=== PATIENT | female | born 1985 | race Caucasian/White ===

== ENCOUNTER 2016-07-04 15:02 | Emergency (ER) | payer MEDICARE, MEDICAID ==
[~2016-07-04] VITALS: Ht 162.6 cm; Wt 70.2 kg
[~2016-07-04 15:02] MED LIST: ALBU0.63 NEB; ALBU8.5H5 INH; ALPR-475 PO; ARIP5TAB6 PO; ASPI-770 PO; CYCL-259 PO; DILT120C64 PO; HYDR-3138 PO; HYDR-3307 PO; ISOS20TA58 PO; MONT4GRA PO; NICO1PAT5 TD; NITR0.4T SL; OMEP-110 PO; ONDA-39 PO; POLY17PO5 PO; PREG25CA PO; TIZA2CAP PO
[2016-07-04] MEDS ORDERED: ONDANSETRON 2MG/ML, 2ML ONE ×2 (15:25→18:53)
[2016-07-04] MEDS ORDERED: MORPHINE SULFATE 4 MG/ML, 1ML ONE ×3 (15:25→18:53)
[2016-07-04] MEDS ORDERED: SODIUM CHLORIDE 0.9% 1,000ML IV ONE (15:30)
[2016-07-04] MEDS ORDERED: ONDANSETRON 2MG/ML, 2ML IVPush ONE ×2 (15:30→19:00)
[2016-07-04] MEDS ORDERED: SODIUM CHLORIDE FLUSH 10ML SYR IVF ONE (15:30)
[2016-07-04] MEDS: MORPHINE SULFATE 4 MG/ML, 1ML IVPush PRN ×2 (16:06→17:03)
[2016-07-04 16:48] LABS: HEMOGLOBIN 15.2 g/dL (11.7-16.4)
[2016-07-04 17:00] LABS: BLOOD UREA NITROGEN 12 mg/dL (7-18)
[2016-07-04 18:07] VITALS: BP 137/86
[2016-07-04] MEDS ORDERED: MORPHINE SULFATE 4 MG/ML, 1ML IVPush ONE (19:00)
== END 2016-07-04 19:24 | disposition home or self-care (01) ==
LOC: ED 19:12
DX: R10.9 Unspecified abdominal pain (principal); R11.0 Nausea; R68.83 Chills (without fever); F17.200 Nicotine dependence, unspecified, uncomplicated; M32.9 Systemic lupus erythematosus, unspecified; I25.10 Atherosclerotic heart disease of native coronary artery without angina pectoris; J45.909 Unspecified asthma, uncomplicated; I25.2 Old myocardial infarction; Z90.5 Acquired absence of kidney; Z90.49 Acquired absence of other specified parts of digestive tract; Z88.6 Allergy status to analgesic agent; Z88.2 Allergy status to sulfonamides
CPT/HCPCS: 36415; 74176; 76770; 80048; 81003; 82040; 84703; 85025; 96361; 96374; 96375; 96376; 99285; J2405; J7030

== ENCOUNTER 2016-08-08 12:14 | Emergency (ER) | payer MEDICAID, MEDICARE ==
[~2016-08-08] VITALS: Ht 162.6 cm; Wt 69.9 kg
[2016-08-08 12:22] VITALS: BP 150/98
[2016-08-08] MEDS ORDERED: SODIUM CHLORIDE FLUSH 10ML SYR IVF ONE (13:30)
[2016-08-08 14:06] LABS: ASPARTATE AMINO TRANSFERASE 19 U/L (15-37); BLOOD UREA NITROGEN 16 mg/dL (7-18)
[2016-08-08 14:13] LABS: IS PT STATUS REG ER OR PRE ER? YES
[2016-08-08] MEDS ORDERED: PREG50CA PO (14:22)
[2016-08-08] MEDS ORDERED: MORPHINE SULFATE 4 MG/ML, 1ML IVPush PRN (15:00)
[2016-08-08] MEDS ORDERED: ONDANSETRON 2MG/ML, 2ML IVPush ONE (15:00)
[2016-08-08] MEDS ORDERED: MORPHINE SULFATE 4 MG/ML, 1ML ONE (15:40)
[2016-08-08] MEDS ORDERED: ONDANSETRON 2MG/ML, 2ML ONE (15:41)
== END 2016-08-08 16:28 | disposition home or self-care (01) ==
LOC: ED 16:10
DX: R52 Pain, unspecified (principal); R42 Dizziness and giddiness
CPT/HCPCS: 36415; 71010; 80053; 81003; 84484; 84703; 85025; 85610; 85651; 85730; 93005; 96374; 96375; 99285; J2405

== ENCOUNTER 2017-12-05 17:17 | Emergency (ER) | payer OTHER ==
[~2017-12-05] VITALS: Ht 162.6 cm; Wt 71.2 kg
[~2017-12-05 17:17] MED LIST changes: +ARIP5TAB13 PO; -ARIP5TAB6 PO; -ASPI-770 PO; +ASPI81TA59 PO; -HYDR-3138 PO; +HYDR-3237 PO; +NICO-487 TD; -NICO1PAT5 TD; -ONDA-39 PO; +ONDA4TAB12 PO; +PREG50CA PO
[2017-12-05 17:56] LABS: MEAN CORPUSCULAR HEMOGLOBIN 31.4 pg (27.0-34.8); MEAN CORPUSCULAR HGB CONC 34.1 g/dL (32.4-35.8); MEAN CORPUSCULAR VOLUME 92.1 fL (80-100); PLATELET COUNT 389 x10^3/uL (130-400); RED BLOOD COUNT 4.76 x10^6/uL (3.82-5.3); RED CELL DISTRIBUTION WIDTH 13.8 % (9.6-15.2)
[2017-12-05 18:05] LABS: ALANINE AMINOTRANSFERASE 104 U/L (12-78); ALBUMIN 3.9 g/dL (3.4-5.0); ANION GAP 8 mmol/L (5-15); CALCIUM 8.7 mg/dL (8.5-10.1); CHLORIDE 106 mmol/L (98-107); CREATININE 0.88 mg/dL (0.55-1.02)
[2017-12-05 18:10] LABS: BILIRUBIN,TOTAL 0.1 mg/dL (0.2-1.0); TOTAL PROTEIN 7.4 g/dL (6.4-8.2)
[2017-12-05 18:13] LABS: ALKALINE PHOSPHATASE 78 U/L (45-117)
[2017-12-05 18:18] LABS: MICROSCOPIC INDICATED
[2017-12-05 18:22] LABS: BASOPHILS # (AUTO) 0.09 x10^3/uL (0-0.1); BASOPHILS % (AUTO) 1 % (0-1); EOSINOPHILS # (AUTO) 0.19 x10^3/uL (0-0.4); EOSINOPHILS % (AUTO) 1 % (1-7); LYMPHOCYTES # (AUTO) 5.08 x10^3/uL (1-3.4); LYMPHOCYTES % (AUTO) 37 % (22-44); MD SCAN; MONOCYTES # (AUTO) 1.01 x10^3/uL (0.2-0.8); MONOCYTES % (AUTO) 7 % (2-9); NEUTROPHILS % (AUTO) 54 % (42-75)
[2017-12-05 18:30] LABS: CULTURE INDICATED? NO
[2017-12-05] MEDS ORDERED: SODIUM CHLORIDE FLUSH 10ML SYR IVF ONE (18:30)
[2017-12-05 19:52] VITALS: BP 148/94
== END 2017-12-05 19:54 | disposition home or self-care (01) ==
LOC: ED 19:15
DX: M54.5 Low back pain (principal); F17.200 Nicotine dependence, unspecified, uncomplicated; M32.9 Systemic lupus erythematosus, unspecified; R50.9 Fever, unspecified; R11.0 Nausea; I25.10 Atherosclerotic heart disease of native coronary artery without angina pectoris; I25.2 Old myocardial infarction; J45.909 Unspecified asthma, uncomplicated; Z90.49 Acquired absence of other specified parts of digestive tract; Z88.2 Allergy status to sulfonamides; Z88.8 Allergy status to other drugs, medicaments and biological substances; Z90.5 Acquired absence of kidney
CPT/HCPCS: 36415; 74018; 76770; 80053; 81001; 84703; 85025; 99285

== ENCOUNTER 2018-01-22 09:15 | Emergency (ER) | payer OTHER ==
[~2018-01-22] VITALS: Ht 162.6 cm; Wt 67.7 kg
[2018-01-22 10:23] LABS: BASOPHILS # (AUTO) 0.08 x10^3/uL (0-0.1); BASOPHILS % (AUTO) 1 % (0-1); EOSINOPHILS # (AUTO) 0.22 x10^3/uL (0-0.4); EOSINOPHILS % (AUTO) 2 % (1-7); LYMPHOCYTES # (AUTO) 3.49 x10^3/uL (1-3.4); LYMPHOCYTES % (AUTO) 25 % (22-44); MD NO; MEAN CORPUSCULAR HEMOGLOBIN 31.3 pg (27.0-34.8); MEAN CORPUSCULAR HGB CONC 34.1 g/dL (32.4-35.8); MEAN CORPUSCULAR VOLUME 91.7 fL (80-100); MONOCYTES # (AUTO) 0.84 x10^3/uL (0.2-0.8); MONOCYTES % (AUTO) 6 % (2-9); NEUTROPHILS # (AUTO) 9.43 x10^3/uL (1.8-6.8); NEUTROPHILS % (AUTO) 67 % (42-75); PLATELET COUNT 320 x10^3/uL (130-400); RED BLOOD COUNT 4.82 x10^6/uL (3.82-5.3); RED CELL DISTRIBUTION WIDTH 14.1 % (9.6-15.2)
[2018-01-22] MEDS ORDERED: AMIT10TA PO (10:23)
[2018-01-22] MEDS ORDERED: DICL25TA PO (10:23)
[2018-01-22] MEDS ORDERED: GABA-827 PO (10:24)
[2018-01-22] MEDS ORDERED: OXYC-302 PO (10:24)
[2018-01-22] MEDS ORDERED: ISOS5TAB2 PO (10:24)
[2018-01-22] MEDS ORDERED: ARIP2TAB2 PO (10:24)
[2018-01-22] MEDS ORDERED: NITR0.3T SL (10:25)
[2018-01-22] MEDS ORDERED: HYDR10TA4 PO (10:25)
[2018-01-22] MEDS ORDERED: ASPI-650 PO (10:25)
[2018-01-22] MEDS ORDERED: ALBU0.63 NEB (10:25)
[2018-01-22] MEDS ORDERED: TIZA2CAP PO (10:26)
[2018-01-22] MEDS ORDERED: PROMETHAZINE 25 MG/ML, 1ML IM ONE (10:30)
[2018-01-22] MEDS ORDERED: ONDANSETRON 2MG/ML, 2ML IVPush ONE (10:30)
[2018-01-22 10:33] LABS: ALANINE AMINOTRANSFERASE 62 U/L (12-78); ANION GAP 5 mmol/L (5-15); CHLORIDE 106 mmol/L (98-107); CREATININE 0.78 mg/dL (0.55-1.02)
[2018-01-22 10:35] LABS: ALKALINE PHOSPHATASE 85 U/L (45-117); BILIRUBIN,TOTAL 0.3 mg/dL (0.2-1.0); TOTAL PROTEIN 7.8 g/dL (6.4-8.2)
[2018-01-22 10:47] LABS: HCG UR SG 1.008 (1.003-1.030); MICROSCOPIC NOT IND
[2018-01-22 10:54] LABS: CULTURE INDICATED? NO
[2018-01-22] MEDS ORDERED: PROMETHAZINE 25 MG/ML, 1ML ONE (10:55)
[2018-01-22 13:00] VITALS: BP 137/95
== END 2018-01-22 13:02 | disposition home or self-care (01) ==
LOC: ED 11:07
DX: T63.391A Toxic effect of venom of other spider, accidental (unintentional), initial encounter (principal); R11.2 Nausea with vomiting, unspecified; R19.7 Diarrhea, unspecified; I25.10 Atherosclerotic heart disease of native coronary artery without angina pectoris; I25.2 Old myocardial infarction; F17.200 Nicotine dependence, unspecified, uncomplicated; Z88.1 Allergy status to other antibiotic agents; Y92.9 Unspecified place or not applicable
CPT/HCPCS: 36415; 80053; 81003; 81025; 83690; 85025; 96372; 99284; J2550

== ENCOUNTER 2018-09-20 11:01 | Emergency (ER) | payer OTHER ==
[~2018-09-20] VITALS: Ht 162.6 cm; Wt 66.2 kg
[~2018-09-20 11:01] MED LIST changes: +AMIT10TA PO; +ARIP2TAB2 PO; +ASPI-650 PO; +DICL25TA PO; +GABA-827 PO; +HYDR10TA4 PO; +ISOS5TAB2 PO; +NITR0.3T SL; -NITR0.4T SL; +NITR0.4T41 SL; +OXYC-302 PO
--- NOTE | 2018-09-20 11:27 | NUR ---
pt to ed with cp since 6pm last night, dull, achy, having palpitations, worse when lying down. hx lupus. took nitro with no relief. pt placed on monitor, dr. osorio at bedside. at bedside, call light within reach
[2018-09-20] MEDS ORDERED: ONDANSETRON 2MG/ML, 2ML ONE (11:47)
[2018-09-20] MEDS ORDERED: MORPHINE SULFATE 4 MG/ML, 1ML ONE (11:47)
[2018-09-20] MEDS ORDERED: ONDANSETRON 2MG/ML, 2ML IVPush ONE (12:00)
[2018-09-20] MEDS ORDERED: MORPHINE SULFATE 4 MG/ML, 1ML IVPush PRN (12:00)
--- NOTE | 2018-09-20 12:16 | NUR ---
iv established and pt medicated per jun. pt states she is feeling sob. ok per md for pt to have her own inhaler. awaiting labs and rad results. pt on monitor, call light within reach, at bedside.
[2018-09-20 12:22] LABS: BASOPHILS # (AUTO) 0.05 x10^3/uL (0-0.1); BASOPHILS % (AUTO) 0 % (0-1); EOSINOPHILS % (AUTO) 1 % (1-7); LYMPHOCYTES # (AUTO) 3.37 x10^3/uL (1-3.4); LYMPHOCYTES % (AUTO) 24 % (22-44); MD NO; MEAN CORPUSCULAR HEMOGLOBIN 31.1 pg (27.0-34.8); MEAN CORPUSCULAR HGB CONC 33.2 g/dL (32.4-35.8); MEAN CORPUSCULAR VOLUME 93.9 fL (80-100); MEAN PLATELET VOLUME 8.2 fL (7.4-10.4); MONOCYTES # (AUTO) 0.63 x10^3/uL (0.2-0.8); MONOCYTES % (AUTO) 5 % (2-9); NEUTROPHILS # (AUTO) 9.84 x10^3/uL (1.8-6.8); NEUTROPHILS % (AUTO) 70 % (42-75); PLATELET COUNT 347 x10^3/uL (130-400); RED BLOOD COUNT 4.55 x10^6/uL (3.82-5.3); RED CELL DISTRIBUTION WIDTH 13.8 % (9.6-15.2)
[2018-09-20 12:32] LABS: ALANINE AMINOTRANSFERASE 36 U/L (12-78); ANION GAP 8 mmol/L (5-15); CALCIUM 9.2 mg/dL (8.5-10.1); CHLORIDE 110 mmol/L (98-107); CREATININE 0.79 mg/dL (0.55-1.02)
[2018-09-20 12:37] LABS: ALKALINE PHOSPHATASE 78 U/L (45-117); BILIRUBIN,TOTAL 0.4 mg/dL (0.2-1.0); TOTAL PROTEIN 7.4 g/dL (6.4-8.2); TROPONIN I < 0.015 ng/mL (0.000-0.045)
[2018-09-20 12:58] VITALS: BP 131/95
--- NOTE | 2018-09-20 12:59 | NUR ---
pt resting in rphyllis with at bedside, awaiting [facility] records. call light within reach
== END 2018-09-20 13:38 | disposition home or self-care (01) ==
LOC: ED 13:33
DX: R07.89 Other chest pain (principal); M79.18 Myalgia, other site; R00.2 Palpitations; I25.2 Old myocardial infarction; I09.9 Rheumatic heart disease, unspecified; J45.909 Unspecified asthma, uncomplicated; I25.10 Atherosclerotic heart disease of native coronary artery without angina pectoris; Z87.39 Personal history of other diseases of the musculoskeletal system and connective tissue; Z90.5 Acquired absence of kidney; Z90.49 Acquired absence of other specified parts of digestive tract; Z72.89 Other problems related to lifestyle
CPT/HCPCS: 36415; 71045; 80053; 84484; 84703; 85025; 85379; 93005; 96374; 96375; 99284; J2270; J2405

== ENCOUNTER 2019-03-27 18:09 | Emergency (ER) | payer OTHER ==
[~2019-03-27] VITALS: Ht 162.6 cm; Wt 64.5 kg
[~2019-03-27 18:09] MED LIST changes: -ALPR-475 PO; +ALPR0.5T7 PO; -HYDR-3307 PO; +HYDR-36 PO
--- NOTE | 2019-03-27 18:41 | NUR ---
BIB EMS FROM HOME, RLQ ABD PAIBN X 1 DAY WORSE THIS AFTERNOON AND DEVELOPED SUBSTERNAL NON-RADIATING CP TOOK OWN NTG WITH RELIEF OF PAIN. REC'D 50MCG FENT AND 4MG ZOFRAN FROM EMS WITH IMPROVEMENT IN ABD PAIN. PT PRESENTS WITH NO CP AT THIS TIME. 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
--- NOTE | 2019-03-27 18:48 | NUR ---
DR SCANLON AT BEDSIDE. PT ASSESSMENT REVIEWED, ORDERS REC'D.
[2019-03-27] MEDS ORDERED: DULO30CA2 PO (18:56)
[2019-03-27] MEDS ORDERED: GABA300C10 PO (18:56)
[2019-03-27] MEDS ORDERED: HYDR-826 PO (18:56)
[2019-03-27] MEDS ORDERED: METO25TA35 PO (18:56)
[2019-03-27] MEDS ORDERED: ONDANSETRON 2MG/ML, 2ML IVPush ONE (19:00)
[2019-03-27] MEDS ORDERED: MORPHINE SULFATE 4 MG/ML, 1ML IVPush PRN (19:00)
--- NOTE | 2019-03-27 19:10 | NUR ---
SBAR RPT TO [facility]OS.
--- NOTE | 2019-03-27 19:13 | NUR ---
REPORT FROM KIRSTIN STORY WITH ASSESSMENT PATIENT REPORTS RLQ ABD PAIN AT 8/10 (REFRACTORY TO FENT GIVEN BY EMS) HAS APPENDIX, LBM 03/26/19 HX OF RIGHT NEPHRECTOMY.CHOLECYSTECTOMY VSS ON CADIAC MONITOR UA SENT LAB AT BEDSIDE-LABS OBTAINED
[2019-03-27 19:24] LABS: MICROSCOPIC AUTO
[2019-03-27 19:26] LABS: BASOPHILS # (AUTO) 0.05 x10^3/uL (0-0.1); BASOPHILS % (AUTO) 0 % (0-1); EOSINOPHILS # (AUTO) 0.29 x10^3/uL (0-0.4); EOSINOPHILS % (AUTO) 2 % (1-7); LYMPHOCYTES # (AUTO) 4.25 x10^3/uL (1-3.4); LYMPHOCYTES % (AUTO) 34 % (22-44); MD NO; MEAN CORPUSCULAR HEMOGLOBIN 31.5 pg (27.0-34.8); MEAN CORPUSCULAR VOLUME 95.4 fL (80-100); MONOCYTES % (AUTO) 6 % (2-9); NEUTROPHILS % (AUTO) 57 % (42-75); PLATELET COUNT 366 x10^3/uL (130-400); RED BLOOD COUNT 4.65 x10^6/uL (3.82-5.3); RED CELL DISTRIBUTION WIDTH 13.8 % (9.6-15.2)
[2019-03-27 19:29] LABS: ALANINE AMINOTRANSFERASE 42 U/L (12-78); ALBUMIN 3.6 g/dL (3.4-5.0); ANION GAP 6 mmol/L (5-15); CALCIUM 9.2 mg/dL (8.5-10.1); CHLORIDE 104 mmol/L (98-107); CULTURE INDICATED? NO
[2019-03-27 19:35] LABS: ALKALINE PHOSPHATASE 90 U/L (45-117); BILIRUBIN,TOTAL 0.2 mg/dL (0.2-1.0); TOTAL PROTEIN 7.4 g/dL (6.4-8.2); TROPONIN I < 0.015 ng/mL (0.000-0.045)
[2019-03-27] MEDS ORDERED: ONDANSETRON 2MG/ML, 2ML ONE (19:51)
[2019-03-27] MEDS ORDERED: MORPHINE SULFATE 4 MG/ML, 1ML ONE (19:51)
--- NOTE | 2019-03-27 19:58 | NUR ---
MEDICATED PER EMAR FO PAIN RATED AT 8/10 TO RLQ
--- NOTE | 2019-03-27 20:31 | NUR ---
CALLED CT TO EXPEDITE EXAM
[2019-03-27] MEDS ORDERED: OMNIPAQUE 350 MG/ML, 100ML BOTTLE ONE (20:46)
--- NOTE | 2019-03-27 20:50 | NUR ---
TO CT SCAN WITH REASSESSMENT PAIN IMPROVED TO 4/10 VSS ON COLLAR PACKER
[2019-03-27 21:05] VITALS: BP 132/78
== END 2019-03-27 21:57 | disposition home or self-care (01) ==
LOC: ED 21:18
DX: R10.31 Right lower quadrant pain (principal); R11.2 Nausea with vomiting, unspecified; I25.10 Atherosclerotic heart disease of native coronary artery without angina pectoris; F17.200 Nicotine dependence, unspecified, uncomplicated; Z90.49 Acquired absence of other specified parts of digestive tract; I25.2 Old myocardial infarction
CPT/HCPCS: 36415; 74177; 80053; 81001; 83690; 84484; 84703; 85025; 93005; 96374; 96375; 99284; J2270; J2405; Q9967

== ENCOUNTER 2019-05-05 18:49 | Emergency (ER) | payer OTHER ==
[~2019-05-05] VITALS: Ht 162.6 cm; Wt 70.1 kg
[~2019-05-05 18:49] MED LIST changes: +DULO30CA2 PO; +GABA300C10 PO; +HYDR-826 PO; +METO25TA35 PO
[2019-05-05 19:33] LABS: BASOPHILS # (AUTO) 0.06 x10^3/uL (0-0.1); BASOPHILS % (AUTO) 0 % (0-1); EOSINOPHILS # (AUTO) 0.18 x10^3/uL (0-0.4); EOSINOPHILS % (AUTO) 1 % (1-7); LYMPHOCYTES # (AUTO) 4.66 x10^3/uL (1-3.4); LYMPHOCYTES % (AUTO) 31 % (22-44); MD NO; MEAN CORPUSCULAR HGB CONC 33.3 g/dL (32.4-35.8); MEAN CORPUSCULAR VOLUME 93.2 fL (80-100); MEAN PLATELET VOLUME 8.1 fL (7.4-10.4); MONOCYTES # (AUTO) 0.74 x10^3/uL (0.2-0.8); MONOCYTES % (AUTO) 5 % (2-9); NEUTROPHILS # (AUTO) 9.19 x10^3/uL (1.8-6.8); NEUTROPHILS % (AUTO) 62 % (42-75); PLATELET COUNT 434 x10^3/uL (130-400); RED BLOOD COUNT 4.72 x10^6/uL (3.82-5.3); RED CELL DISTRIBUTION WIDTH 14.9 % (9.6-15.2)
[2019-05-05 19:45] LABS: ALANINE AMINOTRANSFERASE 42 U/L (12-78); ANION GAP 4 mmol/L (5-15); CALCIUM 9.7 mg/dL (8.5-10.1); CHLORIDE 105 mmol/L (98-107)
[2019-05-05 19:53] LABS: ALKALINE PHOSPHATASE 82 U/L (45-117); BILIRUBIN,TOTAL 0.1 mg/dL (0.2-1.0); CREATININE 0.78 mg/dL (0.55-1.02)
--- NOTE | 2019-05-05 20:24 | NUR ---
pt to room from lobby
--- NOTE | 2019-05-05 20:50 | NUR ---
PT IN ROOM CONNECTED TO MONITORS. IN HOSPITAL GON. UA OBTAINED AND SENT TO LAB.
[2019-05-05] MEDS ORDERED: ONDANSETRON 2MG/ML, 2ML IVPush ONE (21:00)
[2019-05-05] MEDS ORDERED: ONDANSETRON 2MG/ML, 2ML ONE (21:00)
[2019-05-05] MEDS ORDERED: MORPHINE SULFATE 4 MG/ML, 1ML ONE ×2 (21:00→21:46)
[2019-05-05] MEDS ORDERED: SODIUM CHLORIDE FLUSH 10ML SYR IVF ONE (21:00)
[2019-05-05 21:08] LABS: MICROSCOPIC INDICATED
[2019-05-05] MEDS: MORPHINE SULFATE 4 MG/ML, 1ML IVPush PRN ×2 (21:10→21:48)
[2019-05-05] MEDS ORDERED: L.AC1CAP6 PO (21:20)
[2019-05-05] MEDS ORDERED: ARIP10TA15 PO (21:20)
[2019-05-05] MEDS ORDERED: ASPI81TA45 PO (21:20)
[2019-05-05] MEDS ORDERED: OXYC-296 PO (21:20)
[2019-05-05 21:26] LABS: CULTURE INDICATED? YES
[2019-05-05 22:19] VITALS: BP 135/88
--- NOTE | 2019-05-05 22:20 | NUR ---
Patient/Caregiver given discharge instructions and they have confirmed that they understand the instructions. Patient ambulatory with steady gait.
== END 2019-05-05 22:27 | disposition home or self-care (01) ==
LOC: ED 21:23
DX: N30.00 Acute cystitis without hematuria (principal); R10.9 Unspecified abdominal pain; I25.10 Atherosclerotic heart disease of native coronary artery without angina pectoris; J45.909 Unspecified asthma, uncomplicated; I25.2 Old myocardial infarction; M32.9 Systemic lupus erythematosus, unspecified; F17.200 Nicotine dependence, unspecified, uncomplicated; Z90.49 Acquired absence of other specified parts of digestive tract
CPT/HCPCS: 36415; 80053; 81001; 84703; 85025; 87086; 96374; 96375; 96376; 99283; J2270; J2405

== ENCOUNTER 2020-01-19 12:28 | Emergency (ER) | payer OTHER ==
[~2020-01-19] VITALS: Ht 162.6 cm; Wt 72.2 kg
[~2020-01-19 12:28] MED LIST changes: +ARIP10TA15 PO; +ASPI81TA45 PO; +HYDR-2995 PO; +HYDR-3246 PO; -HYDR-36 PO; -HYDR10TA4 PO; +L.AC1CAP6 PO; +ONDA-89 PO; -ONDA4TAB12 PO; +OXYC-296 PO
--- NOTE | 2020-01-19 13:16 | NUR ---
HX LUPUS, KIDNEY REPLACEMENT WENT TO [facility] SENT HERE HAD NEG STREP NEG MONO AT CLINIC. URINE SENT.
[2020-01-19] MEDS ORDERED: methylPREDNISolone SOD SUCC 125 MG/2 ML ONE (13:57)
[2020-01-19] MEDS ORDERED: SODIUM CHLORIDE FLUSH 10ML SYR IVF ONE (14:00)
[2020-01-19] MEDS ORDERED: methylPREDNISolone SOD SUCC 125 MG/2 ML IV ONE (14:00)
[2020-01-19] MEDS ORDERED: SODIUM CHLORIDE 0.9% 1,000ML IVBOLUS ONE (14:00)
[2020-01-19 14:07] LABS: MICROSCOPIC NOT IND
[2020-01-19] MEDS ORDERED: HYDROmorphone 2 MG/ML, 1ML ONE ×2 (14:16→14:43)
[2020-01-19] MEDS ORDERED: ONDANSETRON 2MG/ML, 2ML ONE ×2 (14:16→15:51)
[2020-01-19] MEDS: HYDROmorphone 2 MG/ML, 1ML IVPush PRN ×2 (14:19→14:46)
--- NOTE | 2020-01-19 14:22 | NUR ---
MEDICATED PER ORDER, IVF INFUSING. ON CONT PULSE OX, B/P. SIDE RAILS UP WILL CONTINUE TO MONITOR.
[2020-01-19 14:30] LABS: BASOPHILS % (AUTO) 1 % (0-1); EOSINOPHILS % (AUTO) 2 % (1-7); LYMPHOCYTES % (AUTO) 35 % (22-44); MEAN CORPUSCULAR HEMOGLOBIN 30.6 pg (27.0-34.8); MEAN CORPUSCULAR HGB CONC 33.4 g/dL (32.4-35.8); MEAN PLATELET VOLUME 8.2 fL (7.4-10.4); MONOCYTES % (AUTO) 9 % (2-9); NEUTROPHILS % (AUTO) 54 % (42-75); PLATELET COUNT 288 x10^3/uL (130-400); RED BLOOD COUNT 4.52 x10^6/uL (3.82-5.3); RED CELL DISTRIBUTION WIDTH 14.2 % (9.6-15.2)
[2020-01-19] MEDS ORDERED: ONDANSETRON 2MG/ML, 2ML IVPush ONE ×2 (14:30→16:00)
[2020-01-19 14:40] LABS: ALANINE AMINOTRANSFERASE 182 U/L (12-78); ALBUMIN 3.2 g/dL (3.4-5.0); ANION GAP 4 mmol/L (5-15); CHLORIDE 105 mmol/L (98-107); CREATININE 0.73 mg/dL (0.55-1.02)
[2020-01-19 14:42] LABS: MD NO
[2020-01-19 14:45] LABS: ALKALINE PHOSPHATASE 92 U/L (45-117); BILIRUBIN,TOTAL 0.3 mg/dL (0.2-1.0); TOTAL PROTEIN 6.5 g/dL (6.4-8.2)
[2020-01-19 15:01] VITALS: BP 105/61
--- NOTE | 2020-01-19 15:01 | NUR ---
PT APPEARS MORE COMFORTABLE, IVF INFUSED, VSS, TALKING TO MOM. REPORTS 8/10 PAIN ASKING FOR MORE PAIN MEDS. AIDET PROVIDED.
[2020-01-19 15:30] LABS: HCT (SEDRATE) 41.4 % (34.6-47.8)
[2020-01-19] MEDS ORDERED: MORPHINE SULFATE 4 MG/ML, 1ML ONE (15:51)
--- NOTE | 2020-01-19 15:58 | NUR ---
Christina RN note: Pt medicated for continued pain per MAR. Pt fully dressed, requesting PIV be removed after medications given. PIV dc'd with tip intact, gauze and tape dressing applied. Pt sitting at side of bed, reports ready for dc.
[2020-01-19] MEDS ORDERED: MORPHINE SULFATE 4 MG/ML, 1ML IVPush PRN (16:00)
== END 2020-01-19 16:27 | disposition home or self-care (01) ==
LOC: ED 13:37
DX: R10.9 Unspecified abdominal pain (principal); R11.0 Nausea; J02.9 Acute pharyngitis, unspecified; R21 Rash and other nonspecific skin eruption; R53.83 Other fatigue
CPT/HCPCS: 36415; 71045; 80053; 81003; 83605; 84703; 85025; 85651; 87040; 96374; 96375; 96376; 99284; J1170; J2270; J2405; J2930; J7030

== ENCOUNTER 2020-05-23 10:49 | Emergency (ER) | payer SELFPAY ==
[~2020-05-23] VITALS: Ht 162.6 cm; Wt 72.7 kg
[~2020-05-23 10:49] MED LIST changes: +ASPI-1026 PO; -ASPI-650 PO; -CYCL-259 PO; +CYCL10TA2 PO; -HYDR-3246 PO; +HYDR-3248 PO; -NICO-487 TD; +NICO-587 TD; -OXYC-302 PO; +OXYC1TAB14 PO
[2020-05-23] MEDS ORDERED: ONDANSETRON 2MG/ML, 2ML ONE ×2 (11:23→12:58)
[2020-05-23] MEDS ORDERED: MORPHINE SULFATE 4 MG/ML, 1ML ONE (11:24)
[2020-05-23] MEDS ORDERED: SODIUM CHLORIDE FLUSH 10ML SYR IVF ONE (11:30)
[2020-05-23] MEDS ORDERED: ONDANSETRON 2MG/ML, 2ML IVPush ONE ×2 (11:30→13:00)
[2020-05-23] MEDS ORDERED: MORPHINE SULFATE 4 MG/ML, 1ML IVPush ONE ×2 (11:30)
--- NOTE | 2020-05-23 11:43 | NUR ---
PT CAME IN CO CHEST PAIN THAT SHE DESCRIBES A "SHARP PAIN" PT STATES IT STARTED 2 DAYS AGO BUT THIS MORNING AROUND 0500 BECAME MUCH WORSE. PT HAS EXTENSIVE CARDIAC HX - SEE CLINICAL SCREEN. EKG COMPLETE. PT MEDICATED PER JUN. LABS DRAWN. CONNECTED TO ALL MONITORING EQUIPMENT
[2020-05-23 11:58] LABS: BASOPHILS % (AUTO) 1 % (0-1); EOSINOPHILS % (AUTO) 1 % (1-7); LYMPHOCYTES % (AUTO) 25 % (22-44); MEAN CORPUSCULAR HEMOGLOBIN 30.5 pg (27.0-34.8); MEAN CORPUSCULAR HGB CONC 33.9 g/dL (32.4-35.8); MEAN PLATELET VOLUME 7.9 fL (7.4-10.4); MONOCYTES % (AUTO) 5 % (2-9); NEUTROPHILS % (AUTO) 67 % (42-75); PLATELET COUNT 419 x10^3/uL (130-400); RED BLOOD COUNT 5.12 x10^6/uL (3.82-5.3)
[2020-05-23 12:01] LABS: ALBUMIN 3.9 g/dL (3.4-5.0); ANION GAP 10 mmol/L (5-15); CALCIUM 9.6 mg/dL (8.5-10.1); CHLORIDE 106 mmol/L (98-107)
[2020-05-23 12:08] LABS: ALANINE AMINOTRANSFERASE 113 U/L (12-78); ALKALINE PHOSPHATASE 105 U/L (45-117); BILIRUBIN,TOTAL 0.4 mg/dL (0.2-1.0); CREATININE 0.78 mg/dL (0.55-1.02); TOTAL PROTEIN 7.7 g/dL (6.4-8.2); TROPONIN I < 0.015 ng/mL (0.000-0.045)
[2020-05-23 12:09] LABS: MD NO
--- NOTE | 2020-05-23 12:22 | NUR ---
PT UP FOR RECHECK. RESTING IN [facility]. NAD
[2020-05-23] MEDS ORDERED: methylPREDNISolone SOD SUCC 125 MG/2 ML ONE (12:52)
[2020-05-23] MEDS ORDERED: methylPREDNISolone SOD SUCC 125 MG/2 ML IVPush ONE (13:00)
[2020-05-23 13:02] VITALS: BP 144/88
== END 2020-05-23 13:08 | disposition home or self-care (01) ==
LOC: ED 13:05
DX: R07.89 Other chest pain (principal); I25.10 Atherosclerotic heart disease of native coronary artery without angina pectoris; M32.9 Systemic lupus erythematosus, unspecified; I25.2 Old myocardial infarction; J45.909 Unspecified asthma, uncomplicated; F17.200 Nicotine dependence, unspecified, uncomplicated; Z90.49 Acquired absence of other specified parts of digestive tract
CPT/HCPCS: 36415; 71045; 80053; 84484; 85025; 93005; 96374; 96375; 96376; 99285; J2270; J2405; J2930

== ENCOUNTER 2020-08-17 09:36 | Emergency (ER) | payer SELFPAY ==
[~2020-08-17] VITALS: Ht 162.6 cm; Wt 71.4 kg
[2020-08-17] MEDS ORDERED: MORPHINE SULFATE 4 MG/ML, 1ML ONE ×2 (10:09→12:42)
[2020-08-17] MEDS ORDERED: PROMETHAZINE 25 MG/ML, 1ML ONE (10:09)
--- NOTE | 2020-08-17 10:20 | NUR ---
PT MEDICATED WITH PHENERGAN FOR NAUSEA. IV PENDING US GUIDED INSERTION. US TECH AT BS NOW. MOTHER AT BS.
[2020-08-17 10:24] LABS: BASOPHILS % (AUTO) 1 % (0-1); EOSINOPHILS % (AUTO) 1 % (1-7); LYMPHOCYTES % (AUTO) 21 % (22-44); MEAN CORPUSCULAR HEMOGLOBIN 30.4 pg (27.0-34.8); MEAN CORPUSCULAR HGB CONC 33.5 g/dL (32.4-35.8); MONOCYTES % (AUTO) 5 % (2-9); NEUTROPHILS % (AUTO) 73 % (42-75); PLATELET COUNT 413 x10^3/uL (130-400); RED BLOOD COUNT 4.79 x10^6/uL (3.82-5.3); RED CELL DISTRIBUTION WIDTH 14.7 % (9.6-15.2)
[2020-08-17] MEDS ORDERED: MORPHINE SULFATE 4 MG/ML, 1ML IVPush ONE ×2 (10:30→13:00)
[2020-08-17] MEDS ORDERED: PROMETHAZINE 25 MG/ML, 1ML IM ONE (10:30)
[2020-08-17] MEDS ORDERED: SODIUM CHLORIDE FLUSH 10ML SYR IVF ONE (10:30)
[2020-08-17] MEDS ORDERED: SODIUM CHLORIDE 0.9% 1,000ML IVBOLUS ONE (10:30)
[2020-08-17 10:34] LABS: ALANINE AMINOTRANSFERASE 48 U/L (12-78); ALBUMIN 3.8 g/dL (3.4-5.0); ANION GAP 8 mmol/L (5-15); CALCIUM 9.3 mg/dL (8.5-10.1); CHLORIDE 108 mmol/L (98-107)
[2020-08-17 10:36] LABS: ALKALINE PHOSPHATASE 73 U/L (45-117); BILIRUBIN,TOTAL 0.3 mg/dL (0.2-1.0); TOTAL PROTEIN 7.5 g/dL (6.4-8.2)
--- NOTE | 2020-08-17 10:45 | NUR ---
SECOND RN AT FOR IV INSERTION.
[2020-08-17 10:57] LABS: MD SCAN
--- NOTE | 2020-08-17 11:11 | NUR ---
PT REPORTS RELIEF OF NAUSEA AFTER PHENERGAN. MEDICATED WITH MORPHINE PER ORDERS. IV BOLUS INFUSING.
--- NOTE | 2020-08-17 11:17 | NUR ---
ASSISTED PT TO BR VIA WC. INSTRUCTED ON CLEAN CATCH URINE SAMPLE.
[2020-08-17 11:46] LABS: HCG UR SG 1.011 (1.003-1.030); MICROSCOPIC AUTO
--- NOTE | 2020-08-17 12:28 | NUR ---
ERP AT BS FOR RECHECK. PT REPORTS PAIN AND NAUSEA IMPROVED "A LITTLE" AFTER MEDS/IVF.
[2020-08-17 12:30] VITALS: BP 141/102
[2020-08-17] MEDS ORDERED: ONDANSETRON 2MG/ML, 2ML ONE (12:42)
--- NOTE | 2020-08-17 12:51 | NUR ---
PT MEDICATED FOR PAIN/NAUSEA AGAIN. PT CRYING D/T NOT HAVING ANSWERS FOR HER SYMPTOMS. EMOTIONAL SUPPORT PROVIDED. PT STATES SHE WILL TRY TO GET F/U APPT WITH [facility]EARCH NEUROPSYCHOLOGIST.
[2020-08-17] MEDS ORDERED: ONDANSETRON 2MG/ML, 2ML IVPush ONE (13:00)
--- NOTE | 2020-08-17 13:00 | NUR ---
D/C INSTRUCTIONS, MEDS & F/U APPT ' WITH PT, SHE VERBALIZES UNDERSTANDING. RX GIVEN X1. INSTRUCTED PT TO RETURN TO ED FOR ANY WORSENING SYMPTOMS. ASSISTED PT OUT OF ED VIA WC WITH MOTHER. Addendum: 08/17/20 at 1304 by HBENSON D/C INSTRUCTIONS, MEDS & F/U APPT 'WD WITH PT, SHE VERBALIZES UNDERSTANDING. RX GIVEN X1. INSTRUCTED PT TO RETURN TO ED FOR ANY WORSENING SYMPTOMS. PT AMBULATED OUT OF ED WITHOUT DIFFICULTY WITH MOTHER.
== END 2020-08-17 13:04 | disposition home or self-care (01) ==
LOC: ED 10:06
DX: R11.2 Nausea with vomiting, unspecified (principal); R10.9 Unspecified abdominal pain; E86.0 Dehydration; Z87.39 Personal history of other diseases of the musculoskeletal system and connective tissue; I25.2 Old myocardial infarction; J45.909 Unspecified asthma, uncomplicated; Z90.49 Acquired absence of other specified parts of digestive tract
CPT/HCPCS: 36415; 76770; 80053; 81001; 81025; 83690; 85025; 87086; 96361; 96372; 96374; 96375; 96376; 99285; J2270; J2405; J2550; J7030